=== PATIENT | female | born 1975 | race Two or more races ===

== ENCOUNTER 2023-01-26 20:57 | Emergency (ER) | payer SELFPAY ==
[~2023-01-26] VITALS: Ht 165.1 cm; Wt 69.3 kg
[2023-01-26] MEDS ORDERED: HYDROcodone-ACET 5/325MG TAB PO ONE (23:45)
[2023-01-26] MEDS ORDERED: IBU600T PO (23:48)
[2023-01-26] MEDS ORDERED: CYCL-611 PO (23:48)
[2023-01-27 00:35] VITALS: BP 106/48
== END 2023-01-27 00:27 | disposition home or self-care (01) ==
LOC: ER 21:02
DX: S13.9XXA Sprain of joints and ligaments of unspecified parts of neck, initial encounter (principal); S23.3XXA Sprain of ligaments of thoracic spine, initial encounter; S20.219A Contusion of unspecified front wall of thorax, initial encounter; S09.90XA Unspecified injury of head, initial encounter; M51.36 Other intervertebral disc degeneration, lumbar region; V89.2XXA Person injured in unspecified motor-vehicle accident, traffic, initial encounter; Y93.89 Activity, other specified; Y92.89 Other specified places as the place of occurrence of the external cause; Y99.8 Other external cause status
CPT/HCPCS: 70450; 71045; 72125; 72128; 72131

== ENCOUNTER 2024-01-24 22:44 | Emergency (ER) | payer MEDICAID, OTHER ==
[~2024-01-24] VITALS: Ht 157.5 cm; Wt 60.0 kg
[~2024-01-24 22:44] MED LIST: CYCL-611 PO; IBU600T PO
[2024-01-24] MEDS: ACETAMINOPHEN/CODEINE#3 (300/30mg) TAB PO ONE (23:15)
[2024-01-25] MEDS: IBUPROFEN 800 MG TAB PO ONE (01:58)
[2024-01-25 02:00] VITALS: BP 99/53; PULSE 63; RESP 16; TEMP 97.8; O2SAT 99
[2024-01-25] MEDS ORDERED: IBUP-1455 PO (02:14)
[2024-01-25] MEDS ORDERED: ACE3T PO (02:14)
== END 2024-01-25 04:24 | disposition home or self-care (01) ==
LOC: ER 22:44 → EDBD 22:44 → ER 01-25 04:24
DX: S16.1XXA Strain of muscle, fascia and tendon at neck level, initial encounter (principal); S20.212A Contusion of left front wall of thorax, initial encounter; Z79.899 Other long term (current) drug therapy; V89.2XXA Person injured in unspecified motor-vehicle accident, traffic, initial encounter; Y93.I9 Activity, other involving external motion; Y92.89 Other specified places as the place of occurrence of the external cause; Y99.8 Other external cause status
CPT/HCPCS: 70450; 71250; 72125; 93005